=== PATIENT | female | born 1980 | race Hispanic/Latino ===

== ENCOUNTER 2018-10-28 05:41 | Emergency (ER) | payer OTHER ==
[2018-10-28 05:49] VITALS: BMI 32.5
[2018-10-28] MEDS: Sodium Chloride 0.9% 1,000 ML IV STA (06:15)
--- NOTE | 2018-10-28 06:51 | ED PDOC ---
Syncope/Near Syncope/Dizziness Time Seen by Provider: 10/28/18 05:57 Chief Complaint (Nursing): Syncope Chief Complaint (Provider): Syncope History Per: Patient History/Exam Limitations: no limitations Onset/Duration Of Symptoms: Hrs (x 2) Current Symptoms Are (Timing): Better Number Of Syncopal Episodes: 1 Activity At Onset Of Symptoms: Walking Associated Symptoms Preceding Syncopal Episode: Lightheadedness Seizure Or Post-ictal Symptoms: None Fall Associated With With Symptoms: No Additional Complaint(s): 38 year old female with a history of type I DM presents to the ED for evaluation of lightheadedness and dizziness, onset 2 hours ago. Patient reports that symptoms are normally associated with low blood sugar. However, she measured her sugar and it was high in the 180s. She then walked to the kitchen to eat sugar because the patient believed the meter must be wrong. Patient felt lightheaded, lowered herself onto her kitchen floor and called to her for help. Once her arrived, she passed out for a brief time. When she woke up she started vomiting and became nauseous. Currently, patient only reports nausea. Denies chest pain, shortness of breath, headache and head injury. PMD: Clark Neal Past Medical History Reviewed: Historical Data, Nursing Documentation, Vital Signs Vital Signs: Last Vital Signs Temp 98.9 F 10/28/18 05:49 Pulse 74 10/28/18 05:49 Resp 18 10/28/18 05:49 BP 109/75 10/28/18 05:49 Pulse Ox 100 10/28/18 05:49 - Medical History PMH: Diabetes (type I; has insulin pump) - Surgical History Surgical History: No Surg Hx - Family History Family History: States: Unknown Family Hx - Allergies Allergies/Adverse Reactions: Allergies Allergy/AdvReac Type Severity Reaction Status Date / Time amoxicillin [From Augmentin] Allergy RASH Verified 10/28/18 05:49 clavulanic acid Allergy RASH Verified 10/28/18 05:49 [From Augmentin] Review of Systems ROS Statement: Except As Marked, All Systems Reviewed And Found Negative Constitutional: Positive for: Other (syncope) Cardiovascular: Negative for: Chest Pain, Palpitations Respiratory: Negative for: Shortness of Breath Gastrointestinal: Positive for: Nausea, Vomiting Neurological: Positive for: Dizziness. Negative for: Headache (or head injury) Physical Exam - Reviewed Nursing Documentation Reviewed: Yes Vital Signs Reviewed: Yes - Physical Exam Appears: Positive for: Non-toxic, No Acute Distress Head Exam: Positive for: ATRAUMATIC, NORMAL INSPECTION, NORMOCEPHALIC Skin: Positive for: Normal Color, Warm, Dry Eye Exam: Positive for: EOMI, Normal appearance, PERRL Neck: Positive for: Normal, Painless ROM, Supple Cardiovascular/Chest: Positive for: Regular Rate, Rhythm. Negative for: Murmur Respiratory: Positive for: Normal Breath Sounds. Negative for: Wheezing, Respiratory Distress Gastrointestinal/Abdominal: Positive for: Normal Exam, Soft. Negative for: Tenderness Back: Positive for: Normal Inspection. Negative for: L CVA Tenderness, R CVA Tenderness Extremity: Positive for: Normal ROM (upper and lower extremities). Negative for: Deformity Neurologic/Psych: Positive for: Alert, Oriented (x 3). Negative for: Motor/Sensory Deficits - ECG O2 Sat by Pulse Oximetry: 100 (RA) Pulse Ox Interpretation: Normal Medical Decision Making Medical Decision Makin:05 MDM: likely vasovagal syncope Currently has normal vitals. Will get basic bloodwork, treat symptomatically and reevaluate. --Alcohol serum --UDS --BMP --CBC --EKG --Troponin --NS IV --Zofran 4 mg IV 07:00 Patient will be signed out to Dr. Carmen pending full ER workup and reevaluation. Scribe Attestation: Documented by Tori Ocampo acting as a scribe for Walter Lujan MD Provider Scribe Attestation: All medical record entries made by the Scribe were at my direction and personally dictated by me. I have reviewed the chart and agree that the record accurately reflects my personal performance of the history, physical exam, medical decision making, and the department course for this patient. I have also personally directed, reviewed, and agree with the discharge instructions and disposition. Disposition - Clinical Impression Clinical Impression: Syncope - Patient ED Disposition Is Patient to be Admitted: Transfer of Care - Disposition Disposition: Transfer of Care Disposition Time: 07:00 Condition: STABLE Forms: [employer] ([place]) Patient Signed Over To: Jon Carmen Handoff Comments: pending workup, re-eval
[2018-10-28 07:05] LABS: BASO % 0.5 % (0.0-2.0); EOS # 0.1 K/uL (0.0-0.7); EOS % 1.6 % (0.0-4.0); HEMOGLOBIN 14.9 g/dL (12.0-16.0); LYMPH # 3.1 K/uL (1.0-4.3); LYMPH % 39.8 % (20.0-40.0); MEAN CELL VOLUME 95.3 fl (81.0-99.0); MEAN CORPUSCULAR HEMOGLOBIN 32.8 pg (27.0-31.0); MEAN CORPUSCULAR HGB CONC 34.4 g/dL (33.0-37.0); MEAN PLATELET VOLUME 8.5 fl (7.2-11.7); MONO # 0.5 K/uL (0.0-0.8); MONO % 6.8 % (0.0-10.0); NEUT % 51.3 % (50.0-75.0); RBC 4.54 Mil/uL (3.80-5.20); RED CELL DISTRIBUTION WIDTH 13.4 % (11.5-14.5); WHITE BLOOD COUNT 7.7 K/uL (4.8-10.8)
[2018-10-28 07:07] LABS: BLOOD UREA NITROGEN 16 mg/dl (7-17); CALCIUM 8.8 mg/dL (8.4-10.2); GFR NON-AFRICAN AMERICAN > 60
--- NOTE | 2018-10-28 07:18 | ED PDOC ---
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 Patients chemistry presents high POC glucose of 172 and high random glucose of 170 8 am Patient will be discharged home. aware of results. pt states feels i mproved. Counseling was provided and all questions were answered regarding diagnosis and need for follow up with PMD. There is agreement to discharge plan. Return if symptoms persist or worsen. ---- Scribe Attestation: Documented by All Still, acting as a scribe for Myrna Carmen MD. Provider Scribe Attestation: All medical record entries made by the Scribe were at my direction and personally dictated by me. I have reviewed the chart and agree that the record accurately reflects my personal performance of the history, physical exam, medical decision making, and the department course for this patient. I have also personally directed, reviewed, and agree with the discharge instructions and disposition. Disposition Counseled Patient/Family Regarding: Studies Performed, Diagnosis, Need For Followup - Clinical Impression Clinical Impression: Syncope - POA Present On Arrival: None - Disposition Disposition: Routine/Home Disposition Time: 08:00 Condition: IMPROVED Additional Instructions: follow up with your primary doctor in 1-2 days return to the ED with any worsening or concerning symptoms Instructions: Syncope (Fainting) (DC) Forms: [employer] (Sinhala)
[2018-10-28 07:23] LABS: BARBITURATES, UR NEGATIVE (NEGATIVE); BENZODIAZEPINES, UR NEGATIVE (NEGATIVE); OPIATES, UR NEGATIVE (NEGATIVE); PHENCYCLIDINE, UR NEGATIVE (NEGATIVE)
[2018-10-28 08:45] VITALS: RESP 19
--- NOTE | 2018-10-28 08:55 | CARD ---
APPROVED REPORT Date of service: 10/28/2018 EKG Measurement Heart [id number] <Conclusion> Normal sinus rhythm Normal ECG
[2018-10-28 09:15] VITALS: BP 110/78; PULSE 76; TEMP 97.5
[2018-10-28 09:34] VITALS: O2SAT 100
== END 2018-10-28 09:23 | disposition home or self-care (01) ==
LOC: H.ER 05:41
DX: R55 Syncope and collapse (principal); Z79.4 Long term (current) use of insulin; Z88.0 Allergy status to penicillin
CPT/HCPCS: 80048; 80320; 80324; 80345; 80346; 80349; 80353; 80358; 80361; 81025; 82948; 83992; 84484; 85025; 93005; 96374; 99285; J2405; J7030